=== PATIENT | male | born 1975 | race Caucasian/White ===

== ENCOUNTER 2025-06-29 17:45 | Emergency (ER) | payer SELFPAY ==
[2025-06-29] MEDS: Diphtheria,Pertussis(Acell),Tetanus Vaccine 0.5 ML Syringe IM ONE (19:35)
[2025-06-29] MEDS: Lidocaine 1% with EPINEPHrine 1:100,000 20 ML MDV ONE (21:01)
== END 2025-06-29 21:06 | disposition home or self-care (01) ==
LOC: JD.ED 17:45
DX: S01.01XA Laceration without foreign body of scalp, initial encounter (principal); Z23 Encounter for immunization; W20.8XXA Other cause of strike by thrown, projected or falling object, initial encounter
CPT/HCPCS: 12004; 70450; 90471; 90715; 96372; 99283; A9270; J0690; J2004